=== PATIENT | female | born 1985 | race Caucasian/White ===

== ENCOUNTER 2020-02-20 10:39 | Inpatient (IN) | payer OTHER, SELFPAY ==
[~2020-02-20] VITALS: Ht 172.7 cm; Wt 86.2 kg
[2020-02-20] MEDS ORDERED: LR 500 ML IV ONE (11:04)
[2020-02-20] MEDS: LR 1,000 ML IV SCH (11:04)
[2020-02-20] MEDS ORDERED: TERBUTALINE SULFATE 1 MG/ML VIAL SUBCUT ONE (11:15)
[2020-02-20 11:50] LABS: BASOPHILS % (AUTO) 0.4 % (0.0-2.0); EOSINOPHILS # (AUTO) 0.1 K/uL (0.0-0.4); EOSINOPHILS % (AUTO) 0.5 % (0.0-4.0); HEMATOCRIT 32.8 % (36-48); LYMPHOCYTES # (AUTO) 2.1 K/uL (1.0-5.5); LYMPHOCYTES % (AUTO) 21.7 % (20.5-51.5); MEAN CORPUSCULAR HEMOGLOBIN 26 pg (27-31); MEAN CORPUSCULAR HGB CONC 33 % (32-36); MEAN CORPUSCULAR VOLUME 78 fL (79.0-98.0); MONOCYTES # (AUTO) 0.6 K/uL (0.0-1.0); MONOCYTES % (AUTO) 5.7 % (1.7-9.3); NEUTROPHILS # (AUTO) 7.1 K/uL (1.8-7.7); NEUTROPHILS % (AUTO) 71.7 % (40.0-70.0); PLATELET COUNT (AUTO) 259 K/uL (130-430); RED CELL DISTRIBUTION WIDTH 16.5 % (9.0-15.0); WHITE BLOOD COUNT (AUTO) 9.9 K/uL (4.8-10.8)
[2020-02-20 12:25] VITALS: BP_SYST 103
[2020-02-20] MEDS: OXYTOCIN/0.9 % SODIUM CHLORIDE 1,000 ML IV SCH (12:41)
[2020-02-20] MEDS: CLINDAMYCIN 900 mg/50mL D5W 50 ML IV SCH (16:00)
[2020-02-20] MEDS ORDERED: LR 1,000 ML IV.SOLN IV ONE (17:31)
[2020-02-20] MEDS ORDERED: BUPIVACAINE /PF 0.5% 30 ML VIAL INJ ONE (17:31)
[2020-02-20] MEDS ORDERED: NS IRRIG SOLN 1000 ML IR ONE (17:31)
[2020-02-20] MEDS ORDERED: MORPHINE SULFATE 10MG/10ML PF AMP EP ONE (17:31)
[2020-02-21] MEDS ORDERED: ROPIVACAINE HCL/PF 0.2% 200 ML ONE ×2 (01:37→11:42)
[2020-02-21] MEDS: LR 1,000 ML IV SCH ×4 (01:38→21:36)
[2020-02-21] MEDS ORDERED: fentaNYL CITRATE/PF 100 MCG/2 ML AMP ONE ×2 (01:39→11:42)
[2020-02-21] MEDS ORDERED: FENT2mCg/mL-ROPIVA0.2%/NS EPID 200 ML EP SCH (02:45)
[2020-02-21] MEDS ORDERED: NALOXONE HCL 0.4 MG/ML AMP (NARCAN) IVP PRN ×5 (02:45→23:45)
[2020-02-21] MEDS ORDERED: DIPHENHYDRAMINE INJ 50 MG/ML VIAL IVP PRN ×2 (02:45→18:00)
[2020-02-21] MEDS ORDERED: ONDANSETRON HCL 4 MG/2 ML VIAL IVP PRN ×2 (02:45→18:00)
[2020-02-21] MEDS: OXYTOCIN/0.9 % SODIUM CHLORIDE 1,000 ML IV SCH (06:45)
[2020-02-21] MEDS: CLINDAMYCIN 900 mg/50mL D5W 50 ML IV SCH ×4 (08:24→16:01)
[2020-02-21] MEDS ORDERED: OXYTOCIN 10 UNIT/ML VIAL ONE ×2 (17:58→18:01)
[2020-02-21] MEDS ORDERED: MORPHINE SULFATE 10MG/10ML PF AMP EP SCH (18:00)
[2020-02-21] MEDS ORDERED: fentaNYL CITRATE/PF 100 MCG/2 ML AMP IVP PRN ×2 (18:00)
[2020-02-21] MEDS ORDERED: KETOROLAC TROMETHAMINE 60 MG/2 ML VIAL IM PRN (18:00)
[2020-02-21] MEDS ORDERED: NALBUPHINE HCL 10 MG/ML AMP IVP PRN (18:00)
[2020-02-21] MEDS ORDERED: KETOROLAC TROMETHAMINE 30 MG VIAL ONE (19:07)
[2020-02-21 19:27] VITALS: BP_SYST 112
[2020-02-21] MEDS ORDERED: TEMAZEPAM 15 MG CAPSULE PO PRN (21:00)
[2020-02-21] MEDS ORDERED: LR 1,000 ML IV SCH (23:41)
[2020-02-21] MEDS ORDERED: OXYTOCIN/0.9 % SODIUM CHLORIDE 1,000 ML IV ONE (23:41)
[2020-02-21] MEDS ORDERED: HYDROcodone/ACETAMIN 5-325 MG TAB (NORCO/ VICODIN) PO PRN ×2 (23:45)
[2020-02-21] MEDS ORDERED: DIPH-TET-PERTUS Vaccine 0.5 ML VIAL (ADACEL) I.M. PRN (23:45)
[2020-02-21] MEDS ORDERED: LANOLIN 7 GM OINT. TP PRN (23:45)
[2020-02-21] MEDS ORDERED: RHO(D) IMMUNE GLOBULIN/MALTOSE 1500 UNITS/1.3 ML (WINHRO) IM PRN (23:45)
[2020-02-21] MEDS ORDERED: MEASLES,MUMPS&RUBELLA VACC/PF 12500 UNIT/0.5 ML VIAL SUBQ PRN (23:45)
[2020-02-22] MEDS: KETOROLAC TROMETHAMINE 30 MG VIAL IVP SCH ×3 (00:10→12:40)
[2020-02-22 07:51] LABS: BASOPHILS % (AUTO) 0.2 % (0.0-2.0); EOSINOPHILS % (AUTO) 0.2 % (0.0-4.0); HEMATOCRIT 25.1 % (36-48); HEMOGLOBIN 8.2 g/dL (12.0-16.0); LYMPHOCYTES # (AUTO) 2.3 K/uL (1.0-5.5); LYMPHOCYTES % (AUTO) 13.4 % (20.5-51.5); MEAN CORPUSCULAR HEMOGLOBIN 25 pg (27-31); MEAN CORPUSCULAR HGB CONC 33 % (32-36); MEAN CORPUSCULAR VOLUME 78 fL (79.0-98.0); MONOCYTES # (AUTO) 0.9 K/uL (0.0-1.0); NEUTROPHILS # (AUTO) 13.9 K/uL (1.8-7.7); NEUTROPHILS % (AUTO) 81.2 % (40.0-70.0); PLATELET COUNT (AUTO) 216 K/uL (130-430); RED BLOOD CELL COUNT(AUTO) 3.21 MIL/uL (4.2-6.2); RED CELL DISTRIBUTION WIDTH 16.8 % (9.0-15.0); WHITE BLOOD COUNT (AUTO) 17.1 K/uL (4.8-10.8)
[2020-02-22] MEDS: SIMETHICONE 80 MG TAB.CHEW PO PRN ×2 (12:38→18:13)
[2020-02-22] MEDS: SENNOSIDES/DOCUSATE SODIUM 1 TAB TABLET(SENOKOT-S) PO PRN (18:12)
[2020-02-22] MEDS: DOCUSATE SODIUM 100 MG CAPSULE PO PRN (18:12)
[2020-02-22] MEDS: IBUPROFEN 600 MG TABLET PO SCH (18:13)
[2020-02-22] MEDS ORDERED: OXYCODONE/ACETAMINOPHEN 5-325 TABLET PO PRN (21:15)
[2020-02-22] MEDS: OXYCODONE/ACETAMINOPHEN 5-325 TABLET PO PRN (21:45)
[2020-02-23] MEDS: IBUPROFEN 600 MG TABLET PO SCH ×3 (05:55→11:54)
[2020-02-23] MEDS: DOCUSATE SODIUM 100 MG CAPSULE PO PRN (11:53)
[2020-02-23] MEDS: SENNOSIDES/DOCUSATE SODIUM 1 TAB TABLET(SENOKOT-S) PO PRN (11:53)
[2020-02-23] MEDS: SIMETHICONE 80 MG TAB.CHEW PO PRN (11:54)
[2020-02-23] MEDS: OXYCODONE/ACETAMINOPHEN 5-325 TABLET PO PRN (11:55)
== END 2020-02-23 13:00 | disposition home or self-care (01) | DRG 540 ==
LOC: SPU 10:39
PROVIDERS: ADMIT Obstetrics & Gynecology; ATTEND Obstetrics & Gynecology
PROC: 10D00Z1 Extraction of Products of Conception, Low, Open Approach (ICD-10-PCS; principal; 2020-02-21 18:00)
DX: O76 Abnormality in fetal heart rate and rhythm complicating labor and delivery (principal); O33.9 Maternal care for disproportion, unspecified; O62.2 Other uterine inertia; Z20.828 Contact with and (suspected) exposure to other viral communicable diseases; Z37.0 Single live birth; Z3A.39 39 weeks gestation of pregnancy
CPT/HCPCS: 36415; 81002-TC; 85025; 86592; 86886; 86900; 86901; 94760; A4618; J1885; J2274; J2405; J2590; J3010; J3490; J7120

== ENCOUNTER 2022-10-21 09:10 | Inpatient (IN) | payer OTHER ==
[~2022-10-21] VITALS: Ht 172.7 cm; Wt 86.2 kg
[2022-10-21] MEDS ORDERED: CLINDAMYCIN 900 mg/50mL D5W 50 ML IV ONE (09:30)
[2022-10-21 10:11] LABS: BASOPHILS % (AUTO) 0.4 % (0.0-2.0); EOSINOPHILS # (AUTO) 0.1 K/uL (0.0-0.4); EOSINOPHILS % (AUTO) 0.9 % (0.0-4.0); HEMATOCRIT 43.1 % (36-48); HEMOGLOBIN 14.5 g/dL (12.0-16.0); LYMPHOCYTES # (AUTO) 3.1 K/uL (1.0-5.5); LYMPHOCYTES % (AUTO) 33.4 % (20.5-51.5); MEAN CORPUSCULAR HEMOGLOBIN 32 pg (27-31); MEAN CORPUSCULAR HGB CONC 34 % (32-36); MEAN CORPUSCULAR VOLUME 96 fL (79.0-98.0); MONOCYTES # (AUTO) 0.6 K/uL (0.0-1.0); MONOCYTES % (AUTO) 5.9 % (1.7-9.3); NEUTROPHILS # (AUTO) 5.6 K/uL (1.8-7.7); NEUTROPHILS % (AUTO) 59.4 % (40.0-70.0); PLATELET COUNT (AUTO) 161 K/uL (130-430); RED CELL DISTRIBUTION WIDTH 14.8 % (9.0-15.0); WHITE BLOOD COUNT (AUTO) 9.4 K/uL (4.8-10.8)
[2022-10-21 10:58] LABS: BILIRUBIN,URINE NEGATIVE (NEGATIVE); BLOOD, URINE NEGATIVE (NEGATIVE); CLARITY/URINE SL CLOUDY (CLEAR); COLOR,URINE YELLOW (YELLOW); GLUCOSE,URINE NEGATIVE (NEGATIVE); KETONES,URINE NEGATIVE (NEGATIVE); LEUKOCYTE ESTERASE ,URINE 1+ (NEGATIVE); NITRITE, URINE NEGATIVE (NEGATIVE); PROTEIN URINE 1+ (NEGATIVE); UROBILINOGEN,URINE 0.2 (0.2-1.0)
[2022-10-21 11:12] LABS: BACTERIA,URINE FEW /HPF (None Seen)
[2022-10-21 11:13] LABS: HYALINE CASTS, URINE 0-3 /LPF (None Seen)
[2022-10-21 11:24] VITALS: BP_SYST 124
[2022-10-21] MEDS: LR 1,000 ML IV SCH (11:37)
[2022-10-21] MEDS ORDERED: ceFAZolin SODIUM 2 GM in D5W 100 ML IV ONE (12:45)
[2022-10-21] MEDS ORDERED: ceFAZolin SODIUM 2 GM VIAL ONE (13:03)
[2022-10-21] MEDS ORDERED: MORPHINE SULFATE 10MG/10ML PF AMP SP SCH (14:00)
[2022-10-21] MEDS ORDERED: ONDANSETRON HCL 4 MG/2 ML VIAL IVP PRN (14:00)
[2022-10-21] MEDS ORDERED: DIPHENHYDRAMINE INJ 50 MG/ML VIAL IM PRN (14:00)
[2022-10-21] MEDS ORDERED: NALOXONE HCL 0.4 MG/ML AMP (NARCAN) IVP PRN (14:00)
[2022-10-21] MEDS ORDERED: KETOROLAC TROMETHAMINE 60 MG/2 ML VIAL IM PRN (14:00)
[2022-10-21] MEDS ORDERED: ONDANSETRON HCL 4 MG/2 ML VIAL ONE (14:22)
[2022-10-21] MEDS ORDERED: BUPIVACAINE /PF 0.75% 10 ML VIAL INJ ONE (14:22)
[2022-10-21] MEDS ORDERED: MORPHINE SULFATE 10MG/10ML PF AMP ONE (14:22)
[2022-10-21] MEDS ORDERED: OXYTOCIN 10 UNIT/ML VIAL ONE (14:22)
[2022-10-21] MEDS ORDERED: LR 1,000 ML IV.SOLN IV ONE (14:22)
[2022-10-21] MEDS ORDERED: DIPHTH,PERTUSS(ACELL),TET VAC 0.5 ML VIAL (Tdap) I.M. PRN (18:45)
[2022-10-21] MEDS ORDERED: LANOLIN 7 GM OINT. TP PRN (18:45)
[2022-10-21] MEDS ORDERED: OXYTOCIN/0.9 % SODIUM CHLORIDE 1,000 ML IV ONE ×2 (18:45→19:21)
[2022-10-21] MEDS ORDERED: OXYTOCIN/0.9 % SODIUM CHLORIDE 1,000 ML IV SCH (19:00)
[2022-10-21 20:00] VITALS: BP_SYST 135
[2022-10-22] MEDS ORDERED: LR 1,000 ML IV SCH (03:45)
[2022-10-22] MEDS: OXYCODONE/ACETAMINOPHEN 5-325 TABLET PO PRN ×4 (06:19→22:30)
[2022-10-22 07:13] LABS: BASOPHILS # (AUTO) 0.1 K/uL (0.0-0.2); BASOPHILS % (AUTO) 0.9 % (0.0-2.0); EOSINOPHILS % (AUTO) 0.1 % (0.0-4.0); HEMATOCRIT 32.1 % (36-48); HEMOGLOBIN 10.8 g/dL (12.0-16.0); LYMPHOCYTES # (AUTO) 2.5 K/uL (1.0-5.5); LYMPHOCYTES % (AUTO) 17.3 % (20.5-51.5); MEAN CORPUSCULAR HEMOGLOBIN 32 pg (27-31); MEAN CORPUSCULAR HGB CONC 34 % (32-36); MEAN CORPUSCULAR VOLUME 96 fL (79.0-98.0); MONOCYTES # (AUTO) 0.7 K/uL (0.0-1.0); MONOCYTES % (AUTO) 4.6 % (1.7-9.3); NEUTROPHILS % (AUTO) 77.1 % (40.0-70.0); PLATELET COUNT (AUTO) 113 K/uL (130-430); RED BLOOD CELL COUNT(AUTO) 3.34 MIL/uL (4.2-6.2); RED CELL DISTRIBUTION WIDTH 14.8 % (9.0-15.0); WHITE BLOOD COUNT (AUTO) 14.2 K/uL (4.8-10.8)
[2022-10-22] MEDS: LR 1,000 ML IV SCH (07:38)
[2022-10-22] MEDS: DOCUSATE SODIUM 100 MG CAPSULE PO SCH ×2 (09:07→21:48)
[2022-10-22] MEDS: SIMETHICONE 80 MG TAB.CHEW PO PRN ×3 (10:01→16:23)
[2022-10-22] MEDS: IBUPROFEN 600 MG TABLET PO SCH ×2 (12:45→18:31)
[2022-10-22] MEDS: SENNOSIDES/DOCUSATE SODIUM 1 TAB TABLET(SENOKOT-S) PO SCH (21:48)
[2022-10-23] MEDS: SIMETHICONE 80 MG TAB.CHEW PO PRN ×7 (00:08→23:50)
[2022-10-23] MEDS: IBUPROFEN 600 MG TABLET PO SCH ×5 (00:10→23:48)
[2022-10-23] MEDS: OXYCODONE/ACETAMINOPHEN 5-325 TABLET PO PRN ×2 (06:02→20:19)
[2022-10-23] MEDS: DOCUSATE SODIUM 100 MG CAPSULE PO SCH ×2 (09:25→20:20)
[2022-10-23 20:00] VITALS: BP_SYST 128
[2022-10-23] MEDS: SENNOSIDES/DOCUSATE SODIUM 1 TAB TABLET(SENOKOT-S) PO SCH (20:20)
[2022-10-24] MEDS: IBUPROFEN 600 MG TABLET PO SCH ×2 (06:00→12:12)
[2022-10-24] MEDS: SIMETHICONE 80 MG TAB.CHEW PO PRN ×2 (06:03→09:00)
[2022-10-24] MEDS: DOCUSATE SODIUM 100 MG CAPSULE PO SCH (09:00)
[2022-10-24] MEDS: OXYCODONE/ACETAMINOPHEN 5-325 TABLET PO PRN (11:40)
[2022-10-24] MEDS ORDERED: OXYC-128 PO (13:12)
== END 2022-10-24 14:22 | disposition home or self-care (01) | DRG 539 ==
LOC: SPU 09:10
PROVIDERS: ADMIT Obstetrics & Gynecology; ATTEND Obstetrics & Gynecology
PROC: 0UB70ZZ Excision of Bilateral Fallopian Tubes, Open Approach (ICD-10-PCS; 2022-10-21)
PROC: 10D00Z1 Extraction of Products of Conception, Low, Open Approach (ICD-10-PCS; principal; 2022-10-21 12:00)
DX: O34.211 Maternal care for low transverse scar from previous cesarean delivery (principal); Z30.2 Encounter for sterilization; Z37.0 Single live birth; Z3A.39 39 weeks gestation of pregnancy
CPT/HCPCS: 36415; 81000; 85025; 86592; 86886; 86900; 86901; 88302; 94760; J1885; J2274; J2405; J2590; J3490; J7060; J7120